=== PATIENT | female | born 1995 | race Caucasian/White ===

== ENCOUNTER 2019-12-19 12:15 | Inpatient (IN) ==
[2019-12-19 11:59] LABS: Basophils % 0.3 %; Eosinophils % 0.4 %; Hematocrit 38.2 % (35.3-44.9); Hemoglobin 12.6 g/dL (11.5-15.4); Immature Granulocytes % 0.9 % (0-4); Lymphocytes # 1.8 K/mcL (0.6-4.6); Lymphocytes % 17.5 %; Mean Corpuscular Hemoglobin 29.8 pg (28.0-33.3); Mean Corpuscular Volume 90.3 fL (83.0-100.0); Mean Platelet Volume 10.1 fL (9.4-12.4); Monocytes # 0.5 K/mcL (0.0-1.3); Monocytes % 4.6 %; Neutrophils # 7.9 K/mcL (1.6-8.9); Platelet Count 237 K/mcL (140-400); Red Blood Count 4.23 M/mcL (3.82-4.97); Red Cell Distribution Width 13.2 % (11.5-14.5); Segmented Neutrophils % 76.3 %; White Blood Count 10.3 K/mcL (4.3-11.1)
[2019-12-19 12:09] LABS: Protein/Creatinine Ratio,Urine 0.22 mg/mg (0.00-0.20)
[~2019-12-19 12:15] MED LIST: *HR* FentaNYL (PF) 100 MCG/2 ML VIAL IVP PRN; Famotidine 20 MG/2 ML VIAL IVP PRN; Metoclopramide 10 MG/2 ML VIAL IVP PRN; Naloxone 0.4 MG/ML INJ IVP PRN; Ondansetron 4 MG/2 ML VIAL IVP PRN
[2019-12-19 12:19] LABS: Alanine Aminotransferase 12 Units/L (7-52); Aspartate Amino Transferase 18 Units/L (13-39); BUN/Creatinine Ratio 16 (6-26); Blood Urea Nitrogen 10 mg/dL (6-20); Lactate Dehydrogenase 133 Units/L (140-271); Uric Acid 4.9 mg/dL (2.3-7.6); eGFR For African Americans > 60 (> 60); eGFR For Non-African Americans > 60 (> 60)
[2019-12-19] MEDS ORDERED: EPHEDrine 50 MG/ML VIAL IVP PRN (13:14)
[2019-12-19] MEDS ORDERED: miSOPROStoL 25 MCG TABLET VG PRN (13:17)
[2019-12-19] MEDS ORDERED: Penicillin G Potassium 5,000,000 UNIT in 0.9 % Sodium Chloride Mini Bag 100 ML IVPB ONE (13:17)
[2019-12-19] MEDS ORDERED: Ringers Solution, Lactated 1,000 ML IVC SCH (13:30)
[2019-12-19] MEDS ORDERED: Ringers Solution, Lactated 1,000 ML ONE (13:31)
[2019-12-19] MEDS ORDERED: *HR* Labetalol 20 MG/4 ML SYRINGE IVP ONE (15:45)
[2019-12-19] MEDS: *HR* Labetalol 20 MG/4 ML SYRINGE IVP ONE (15:54)
[2019-12-19] MEDS ORDERED: NIFEdipine 10 MG CAPSULE PO ONE (17:11)
[2019-12-19] MEDS: Penicillin G Potassium 2,500,000 UNIT in 0.9 % Sodium Chloride 100 ML IVPB SCH ×2 (17:25→21:47)
[2019-12-19] MEDS: Epidural Premix (fent/bupiv) 110 ML EP SCH (20:40)
[2019-12-19] MEDS ORDERED: Acetaminophen 325 MG TABLET PO ONE (21:24)
[2019-12-19] MEDS ORDERED: Prochlorperazine 10 MG/2 ML VIAL IVP ONE (21:29)
[2019-12-19] MEDS: Oxytocin 20 units/ LR 1000 mL 20 UNIT/1,000 ML BAG IVC SCH (21:50)
[2019-12-19] MEDS ORDERED: D5% in Lactated Ringers 1,000 ML IVC SCH (23:00)
[2019-12-20] MEDS: Penicillin G Potassium 2,500,000 UNIT in 0.9 % Sodium Chloride 100 ML IVPB SCH ×2 (01:20→05:25)
[2019-12-20] MEDS: Epidural Premix (fent/bupiv) 110 ML EP SCH (04:17)
[2019-12-20] MEDS: Oxytocin 20 units/ LR 1000 mL 20 UNIT/1,000 ML BAG IVC SCH (12:49)
[2019-12-20] MEDS ORDERED: Calcium Gluconate 1,000 MG/10 ML VIAL IVP PRN ×2 (13:03→14:34)
[2019-12-20] MEDS ORDERED: Magnesium Sulf 20 gm/SW 500mL 20 GM/500 ML IV.SOLN IVC SCH (13:15)
[2019-12-20] MEDS: Magnesium Sulf 20 gm/SW 500mL 20 GM/500 ML IV.SOLN IVC SCH ×2 (13:28→22:59)
[2019-12-20] MEDS ORDERED: *HR* Labetalol 20 MG/4 ML SYRINGE IVP STA (13:46)
[2019-12-20] MEDS ORDERED: *HR* Labetalol 20 MG/4 ML SYRINGE IVP PRN (13:46)
[2019-12-20] MEDS: *HR* Labetalol 20 MG/4 ML SYRINGE IVP ONE (13:57)
[2019-12-20] MEDS ORDERED: NIFEdipine XL (24 HR) 30 MG TAB.ER.24 PO SCH (14:15)
[2019-12-20] MEDS ORDERED: Oxytocin 20 units/ LR 1000 mL 20 UNIT/1,000 ML BAG IVC SCH (14:34)
[2019-12-20] MEDS ORDERED: Benzocaine/Menthol 56 GM AEROSOL SPRAY TP PRN (14:34)
[2019-12-20] MEDS ORDERED: Oxytocin 20 units/ LR 1000 mL 20 UNIT/1,000 ML BAG IVC ONE (14:34)
[2019-12-20] MEDS ORDERED: Lanolin 7 G OINT...G. TP PRN (14:34)
[2019-12-20] MEDS: Acetaminophen 325 MG TABLET PO PRN (17:00)
[2019-12-20] MEDS: Ibuprofen 600 MG TABLET PO PRN (20:01)
[2019-12-21] MEDS: Acetaminophen 325 MG TABLET PO PRN ×2 (01:55→14:26)
[2019-12-21] MEDS: Ibuprofen 600 MG TABLET PO PRN ×2 (03:38→23:01)
[2019-12-21 07:15] LABS: Basophils % 0.3 %; Eosinophils # 0.1 K/mcL (0.0-0.6); Eosinophils % 0.6 %; Hematocrit 38.4 % (35.3-44.9); Hemoglobin 12.2 g/dL (11.5-15.4); Immature Granulocytes % 0.7 % (0-4); Lymphocytes % 13.9 %; Mean Corpuscular HGB Conc 31.8 g/dL (31.6-35.5); Mean Corpuscular Hemoglobin 29.9 pg (28.0-33.3); Mean Corpuscular Volume 94.1 fL (83.0-100.0); Mean Platelet Volume 10.2 fL (9.4-12.4); Monocytes # 0.8 K/mcL (0.0-1.3); Monocytes % 5.8 %; Platelet Count 143 K/mcL (140-400); Red Blood Count 4.08 M/mcL (3.82-4.97); Red Cell Distribution Width 13.7 % (11.5-14.5); Segmented Neutrophils % 78.7 %
[2019-12-21 07:26] LABS: Alanine Aminotransferase 13 Units/L (7-52); Aspartate Amino Transferase 25 Units/L (13-39); BUN/Creatinine Ratio 7 (6-26); Blood Urea Nitrogen 4 mg/dL (6-20); Lactate Dehydrogenase 240 Units/L (140-271); Magnesium 5.1 mg/dL (1.6-2.6); Uric Acid 6.1 mg/dL (2.3-7.6); eGFR For African Americans > 60 (> 60); eGFR For Non-African Americans > 60 (> 60)
[2019-12-21] MEDS: Prenatal Vit/FA 1 EACH TABLET PO SCH (08:31)
[2019-12-21] MEDS ORDERED: Ondansetron ODT 4 MG TAB.RAPDIS SL PRN (08:48)
[2019-12-21] MEDS ORDERED: NIFEdipine XL (24 HR) 30 MG TAB.ER.24 PO SCH (09:00)
[2019-12-21] MEDS: Magnesium Sulf 20 gm/SW 500mL 20 GM/500 ML IV.SOLN IVC SCH (09:35)
[2019-12-21] MEDS ORDERED: NIFEdipine XL (24 HR) 30 MG TAB.ER.24 PO ONE (09:45)
[2019-12-22] MEDS: NIFEdipine XL (24 HR) 30 MG TAB.ER.24 PO SCH ×3 (04:31→22:29)
[2019-12-22] MEDS: Prenatal Vit/FA 1 EACH TABLET PO SCH (08:34)
[2019-12-22] MEDS ORDERED: NIFEdipine XL (24 HR) 60 MG TAB.ER.24 PO SCH (09:00)
[2019-12-22] MEDS: Ibuprofen 600 MG TABLET PO PRN ×2 (14:03→22:29)
[2019-12-22] MEDS ORDERED: NIFEdipine 10 MG CAPSULE PO ONE (21:00)
[2019-12-23] MEDS: Ibuprofen 600 MG TABLET PO PRN (06:55)
[2019-12-23] MEDS: NIFEdipine XL (24 HR) 30 MG TAB.ER.24 PO SCH (07:51)
[2019-12-23] MEDS: Prenatal Vit/FA 1 EACH TABLET PO SCH (07:51)
[2019-12-23 07:56] VITALS: BP 137/92
== END 2019-12-23 10:47 | disposition home or self-care (01) | DRG 560 ==
LOC: 1NENULAB → 1NENUOBS 12-20 14:34
PROVIDERS: ADMIT Registered Nurse; ATTEND Registered Nurse